=== PATIENT | male | born 1950 | race Caucasian/White ===

== ENCOUNTER 2016-07-16 19:59 | Inpatient (IN) | payer MEDICARE ==
[~2016-07-16] VITALS: Ht 175.3 cm; Wt 99.6 kg
[2016-07-16 22:07] LABS: HEMOGLOBIN 12.3 gm/dl (14.0-17.5); RED BLOOD COUNT 4.4 M/UL (4.20-5.50); WHITE BLOOD COUNT 14.2 K/UL (4.5-11.0)
[2016-07-16 22:54] LABS: BUN/CREATININE RATIO 10 (0-10)
[2016-07-17] MEDS ORDERED: SERTRALINE HCL100 MG PO (03:19)
[2016-07-17] MEDS ORDERED: THEOPHYLLINE600 MG PO (03:20)
[2016-07-17] MEDS ORDERED: ASPIR-LOW81 MG PO (03:20)
[2016-07-17] MEDS ORDERED: DALIRESP 500500 MCG PO (03:21)
[2016-07-17] MEDS ORDERED: HYDROCHLOROTHIA25 MG PO (03:21)
[2016-07-17] MEDS ORDERED: ZOCOR 10 MG TAB10 MG PO (03:22)
[2016-07-17] MEDS ORDERED: LISINOPRIL10 MG PO (03:23)
[2016-07-17] MEDS ORDERED: LEVOTHYROXINE88 MCG PO (03:23)
[2016-07-17] MEDS ORDERED: VIT C-BIOFLAVO1 EACH PO (03:25)
[2016-07-17] MEDS ORDERED: POTASSIUM99 MG PO (03:25)
[2016-07-17] MEDS ORDERED: MAGNESIUM250 M1 PO (03:26)
[2016-07-17] MEDS ORDERED: FOLGARD TABLET1 EACH PO (03:27)
[2016-07-17] MEDS ORDERED: SPIRIVA HANDIH18 MCG INH (03:30)
[2016-07-17] MEDS ORDERED: PROAIR HFA8.5 GM INH (03:32)
[2016-07-17] MEDS ORDERED: ADVAIR 500-501 EACH INH (03:33)
[2016-07-17 03:56] LABS: HEMOGLOBIN 12.1 gm/dl (14.0-17.5); RED BLOOD COUNT 4.29 M/UL (4.20-5.50); WHITE BLOOD COUNT 13.4 K/UL (4.5-11.0)
[2016-07-18 04:10] LABS: HEMOGLOBIN 10.8 gm/dl (14.0-17.5); RED BLOOD COUNT 3.91 M/UL (4.20-5.50); WHITE BLOOD COUNT 9.6 K/UL (4.5-11.0)
[2016-07-19 03:38] LABS: HEMOGLOBIN 10.4 gm/dl (14.0-17.5); RED BLOOD COUNT 3.83 M/UL (4.20-5.50); WHITE BLOOD COUNT 8.6 K/UL (4.5-11.0)
[2016-07-20 04:06] LABS: BUN/CREATININE RATIO 27 (0-10)
[2016-07-21 03:58] LABS: HEMOGLOBIN 10.8 gm/dl (14.0-17.5); RED BLOOD COUNT 3.94 M/UL (4.20-5.50); WHITE BLOOD COUNT 10.5 K/UL (4.5-11.0)
[2016-07-22 03:24] LABS: RED BLOOD COUNT 4.01 M/UL (4.20-5.50); WHITE BLOOD COUNT 8.3 K/UL (4.5-11.0)
[2016-07-23 05:11] LABS: RED BLOOD COUNT 4.38 M/UL (4.20-5.50)
[2016-07-23 05:12] LABS: WHITE BLOOD COUNT 11.8 K/UL (4.5-11.0)
[2016-07-24 05:00] LABS: HEMOGLOBIN 10.7 gm/dl (14.0-17.5); RED BLOOD COUNT 3.93 M/UL (4.20-5.50); WHITE BLOOD COUNT 9.2 K/UL (4.5-11.0)
[2016-07-25 06:56] LABS: HEMOGLOBIN 10.2 gm/dl (14.0-17.5); RED BLOOD COUNT 3.77 M/UL (4.20-5.50); WHITE BLOOD COUNT 9.2 K/UL (4.5-11.0)
[2016-07-26] MEDS ORDERED: PERFOROMIS20 MCG/21 HHN (12:04)
[2016-07-26] MEDS ORDERED: PULMICORT0.5 MG/2 M INH (12:04)
[2016-07-26] MEDS ORDERED: PREDNISONE10 MG PO (12:05)
[2016-07-26] MEDS ORDERED: LEVAQUIN750 MG PO (12:26)
== END 2016-07-26 17:13 | DRG 871 ==
LOC: ER1 19:59 → PROG CARE 23:30 → ZEROF 23:30 → CCU 07-17 01:50 → PROG CARE 07-20 18:58 → MED SURG 4 07-22 17:59
PROVIDERS: Family Medicine; Internal Medicine Nephrology; Student in an Organized Health Care Education/Training Program; ADMIT Emergency Medicine
DX: A41.9 Sepsis, unspecified organism (principal); I21.4 Non-ST elevation (NSTEMI) myocardial infarction; J96.22 Acute and chronic respiratory failure with hypercapnia; J18.9 Pneumonia, unspecified organism; N17.0 Acute kidney failure with tubular necrosis; K72.00 Acute and subacute hepatic failure without coma; G93.41 Metabolic encephalopathy; J96.21 Acute and chronic respiratory failure with hypoxia; K92.2 Gastrointestinal hemorrhage, unspecified; J44.1 Chronic obstructive pulmonary disease with (acute) exacerbation; B17.9 Acute viral hepatitis, unspecified; E87.0 Hyperosmolality and hypernatremia; R57.9 Shock, unspecified; Z66 Do not resuscitate; I49.3 Ventricular premature depolarization; R00.8 Other abnormalities of heart beat; D64.9 Anemia, unspecified; R60.0 Localized edema; M60.9 Myositis, unspecified; E86.0 Dehydration; E79.0 Hyperuricemia without signs of inflammatory arthritis and tophaceous disease; Z77.22 Contact with and (suspected) exposure to environmental tobacco smoke (acute) (chronic); I10 Essential (primary) hypertension; Z99.81 Dependence on supplemental oxygen; E03.9 Hypothyroidism, unspecified; E78.5 Hyperlipidemia, unspecified; R51 Headache; Z87.891 Personal history of nicotine dependence; Z79.51 Long term (current) use of inhaled steroids; Z79.899 Other long term (current) drug therapy; Z82.5 Family history of asthma and other chronic lower respiratory diseases; Z82.49 Family history of ischemic heart disease and other diseases of the circulatory system; Z80.1 Family history of malignant neoplasm of trachea, bronchus and lung; Z88.6 Allergy status to analgesic agent; Z88.8 Allergy status to other drugs, medicaments and biological substances
CPT/HCPCS: ECHO; 36415; 36600; 51702; 70450; 71010; 76705; 80048; 80053; 80074; 80076; 80307; 81001; 82085; 82150; 82270; 82272; 82436; 82533; 82550; 82553; 82803; 82962; 83605; 83690; 83874; 83880; 83935; 84100; 84133; 84300; 84439; 84443; 84480; 84484; 84550; 85025; 85027; 85610; 85730; 87040; 87070; 87086; 87205; 93005; 93306; 93970; 94640; 94660; 94664; 96361; 96365; 96367; 96375; 97110; 97530; 97535; 99291; 99292; C9113; G0480; J0330; J0456; J0696; J1650; J1956; J2543; J2920; J2930; J3370; J7030; J7050; Q0162